=== PATIENT | female | born 1950 | race Two or more races ===

== ENCOUNTER 2023-12-21 17:59 | Emergency (ER) | payer MEDICARE, OTHER ==
[~2023-12-21] VITALS: Ht 162.6 cm; Wt 81.8 kg
[2023-12-21 19:30] LABS: Urine Bacteria None Seen /hpf (None Seen)
[2023-12-21 19:49] LABS: Urine Blood Negative /uL (Negative); Urine Clarity Turbid (Clear); Urine Color Yellow (Yellow); Urine Hyaline Cast MANY /lpf (0 - 2); Urine Mucus FEW (None Seen); Urine Protein, UAD TRACE (Negative); Urine Specific Gravity 1.028 (1.001-1.035); Urine Urobilinogen Normal (Negative); Urine WBC 6 /hpf (0 - 5); Urine pH 5.5 (5.0-9.0)
[2023-12-21] MEDS ORDERED: NITR-87 PO (19:53)
[2023-12-21 20:30] VITALS: BP 122/61; PULSE 65; RESP 18; TEMP 98.1; O2SAT 95
== END 2023-12-21 20:33 | disposition home or self-care (01) ==
LOC: ER 17:59
DX: N39.0 Urinary tract infection, site not specified (principal); J44.9 Chronic obstructive pulmonary disease, unspecified; E78.5 Hyperlipidemia, unspecified; M19.90 Unspecified osteoarthritis, unspecified site; Z88.5 Allergy status to narcotic agent; Z88.6 Allergy status to analgesic agent; Z90.710 Acquired absence of both cervix and uterus
CPT/HCPCS: 81001